=== PATIENT | male | born 1935 | race Caucasian/White ===

== ENCOUNTER → 2016-11-14 | Outpatient (CLI) | payer OTHER ==
[~2016-11-14] MED LIST: ACIDOPHILUS1 EAC3 PO; ALBUTEROL2.5 MG/31 INH; AMIODARONE HCL100 MG PO; ASPIR 8181 MG PO; CALCIUM 600 +1 EAC1 PO; CLARITIN10 MG PO; FISH OIL 1,001000 M2 PO; IRON325 PO; LOPRESSOR25 PO; MIRALAX17 GM PO; MUCINEX TA600 MG/TA2 PO; PROCTOFOAM15 GM TP; PROSCAR 5MG TABL5 MG PO; PROTONIX40 M1 PO; REMERON15 MG PO; SENOKOT-S1 TA1 PO; SINGULAIR 10 MG10 M1 PO; TRAMADOL HCL50 MG PO
[2016-11-14 11:00] VITALS: BP 110/63; BP 144/54
[2016-11-14 13:47] LABS: HEMOGLOBIN 7.8 gm/dL (14.0-18.0); MCHC 33.1 g/dL (28.0-37.0); RBC 1.94 mil/uL (4.50-6.00)
[2016-11-14 13:48] LABS: HEMATOCRIT 23.6 % (42.0-52.0); MCH 40.3 pg (26.0-34.0); MCV 121.7 fL (80.0-100.0); WBC 6.1 thou/uL (4.0-11.0)
== END ==
LOC: OPONC 07:26
PROVIDERS: Family Medicine Geriatric Medicine
DX: D64.9 Anemia, unspecified (principal)
CPT/HCPCS: 91030